=== PATIENT | female | born 1965 | race Caucasian/White ===

== ENCOUNTER 2019-05-13 15:09 | Emergency (ER) | payer OTHER ==
[~2019-05-13] VITALS: Ht 170.2 cm; Wt 60.5 kg
--- NOTE | 2019-05-13 15:16 | NUR ---
MACEY 79 FROM HOME C/O SUICIDAL IDEATION NO PLAN +ETOH, PT AWAKE, PT IN BED, AAOX4, -SOB, NAD NOTED, PENDING MD CORTEZ
[2019-05-13] MEDS ORDERED: ALPR0.255 PO (15:17)
[2019-05-13] MEDS ORDERED: ESCI10TA PO (15:17)
[2019-05-13] MEDS ORDERED: IBUP-1957 PO (15:17)
[2019-05-13 16:04] LABS: BASOPHILS # (AUTO) 0.1 /CMM (0.0-0.2); BASOPHILS % (AUTO) 2.1 % (0.0-2.0); EOSINOPHILS % (AUTO) 1.6 % (0.0-6.0); HEMATOCRIT 41 % (33-45); HEMOGLOBIN 13.7 g/dL (11.5-14.8); LYMPHOCYTES % (AUTO) 34.4 % (20.0-44.0); MEAN CORPUSCULAR HGB CONC 34 g/dl (31.0-36.0); MEAN CORPUSCULAR VOLUME 102 fL (82-100); MONOCYTES # (AUTO) 0.5 /CMM (0.1-1.30); MONOCYTES % (AUTO) 7.9 % (2.0-12.0); NEUTROPHILS # (AUTO) 3.1 /CMM (1.8-8.9); PLATELET COUNT (AUTO) 120 /CMM (150-450); RED BLOOD CELL COUNT(AUTO) 3.98 MIL/uL (4.0-5.2); WHITE BLOOD COUNT (AUTO) 5.8 K/uL (4.3-11.0)
[2019-05-13 16:11] LABS: CALCIUM, SERUM 8.6 mg/dL (8.5-10.1); CARBON DIOXIDE 24 mmol/L (21-32); CHLORIDE 101 mmol/L (98-107); CREATININE 0.8 mg/dL (0.6-1.3); GLUCOSE 88 mg/dL (74-106); POTASSIUM 4.2 mmol/L (3.5-5.1); SODIUM SERUM 139 mmol/L (136-145); UREA NITROGEN, BLOOD 12 mg/dL (7-18)
[2019-05-13 16:24] LABS: ACETAMINOPHEN < 10 ug/ml (10-30); ALANINE AMINOTRANSFERASE 74 U/L (12-78); ALBUMIN 3.7 g/dL (3.4-5.0); ALCOHOL, BLOOD 322 mg/dL (0-0); ALKALINE PHOSPHATASE 75 U/L (46-116); ASPARTATE AMINOTRANSFERASE 85 U/L (15-37); BILIRUBIN,DIRECT 0.1 mg/dL (0.0-0.2); BILIRUBIN,TOTAL 0.2 mg/dL (0.2-1.0); SALICYLATE 8.7 mg/dL (2.8-20.0); TOTAL PROTEIN, SERUM 7.3 g/dL (6.4-8.2)
--- NOTE | 2019-05-13 17:24 | NUR ---
URINE COLLECTED AND SENT TO LAB
[2019-05-13 17:44] LABS: BILIRUBIN,URINE Negative (NEGATIVE); BLOOD, URINE Negative Ery/uL (NEGATIVE); COLOR,URINE Yellow (YELLOW); KETONES,URINE Negative (NEGATIVE); LEUKOCYTE ESTERASE ,URINE Negative (NEGATIVE); NITRITE, URINE Negative (NEGATIVE); PROTEIN,URINE Negative (NEGATIVE); UGLUCOSE Negative (NEGATIVE); UROBILINOGEN,URINE 0.2 EU/dL (0.2)
[2019-05-13 17:45] LABS: APPEARANCE,URINE CLEAR (CLEAR)
[2019-05-13] MEDS ORDERED: IBUPROFEN 600 MG TABLET PO ONE ×2 (18:30→18:59)
--- NOTE | 2019-05-13 20:12 | NUR ---
Patient discharged to home in stable condition. Written and verbal after care instructions given. Patient verbalizes understanding of instruction.
[2019-05-13 20:13] VITALS: BP 124/75
== END 2019-05-13 20:15 | disposition home or self-care (01) ==
LOC: ER 15:11
DX: R45.851 Suicidal ideations (principal); F10.129 Alcohol abuse with intoxication, unspecified; F32.9 Major depressive disorder, single episode, unspecified; F13.10 Sedative, hypnotic or anxiolytic abuse, uncomplicated; Y90.7 Blood alcohol level of 200-239 mg/100 ml; Z60.2 Problems related to living alone; Z79.899 Other long term (current) drug therapy
CPT/HCPCS: 36415; 80048; 80076; 80305; 80307 ×2; 80329; 81001; 84703; 85025; 99284; G0480; 81000-TC

== ENCOUNTER 2019-06-22 14:20 | Emergency (ER) | payer OTHER ==
[~2019-06-22] VITALS: Ht 165.1 cm; Wt 68.0 kg
[~2019-06-22 14:20] MED LIST: ALPR0.255 PO; ESCI10TA PO; IBUP-1957 PO
--- NOTE | 2019-06-22 14:24 | NUR ---
KRIS guajardo s/p etoh use and possible overdose on melatonin, to er bed 10, hooked to monitor, changed to hosp gown, warm blanket provided, awaiting md chamberlain
--- NOTE | 2019-06-22 14:26 | NUR ---
HALDOL 5MG AND ATIVAN 2 MG ADMINISTERED IM TO L DELTOID
--- NOTE | 2019-06-22 14:26 | NUR ---
PATIENT BROUGHT IN WITH DAVID SERRANO OFFICER YARELIS AND OFFICER CYDNEY. PER REPORT, PATIENT WAS SEEN IN HER HOUSE, ETOH AND EMPTY BOTTLE OF XANAX. PER DAVID, PT STATED "I WANT TO , i'M TIRED OF LIFE, I DON'T WANT TO BE IN THIS [place] ANYMORE". PER DAVID REPORT, PATIENT WAS FOUND EXTREMELY INTOXICATED AND FOUND COUPLE OF PRESCRIPTION MEDICATION.
--- NOTE | 2019-06-22 14:27 | NUR ---
1:1 SITTER AT BEDSIDE
--- NOTE | 2019-06-22 14:30 | NUR ---
dr ruvalcaba at bedside
[2019-06-22 14:51] LABS: BASOPHILS # (AUTO) 0.1 /CMM (0.0-0.2); BASOPHILS % (AUTO) 1.2 % (0.0-2.0); EOSINOPHILS % (AUTO) 1.2 % (0.0-6.0); HEMATOCRIT 42 % (33-45); HEMOGLOBIN 14.2 g/dL (11.5-14.8); LYMPHOCYTES # (AUTO) 3.8 /CMM (0.8-4.8); LYMPHOCYTES % (AUTO) 51.7 % (20.0-44.0); MEAN CORPUSCULAR HGB CONC 34 g/dl (31.0-36.0); MEAN CORPUSCULAR VOLUME 104 fL (82-100); MONOCYTES # (AUTO) 0.4 /CMM (0.1-1.30); MONOCYTES % (AUTO) 5.4 % (2.0-12.0); NEUTROPHILS % (AUTO) 40.5 % (43.0-81.0); PLATELET COUNT (AUTO) 168 /CMM (150-450); RED BLOOD CELL COUNT(AUTO) 4.05 MIL/uL (4.0-5.2); WHITE BLOOD COUNT (AUTO) 7.3 K/uL (4.3-11.0)
[2019-06-22 14:58] LABS: CALCIUM, SERUM 8.5 mg/dL (8.5-10.1); CARBON DIOXIDE 30 mmol/L (21-32); CHLORIDE 105 mmol/L (98-107); CREATININE 0.7 mg/dL (0.6-1.3); GLUCOSE 87 mg/dL (74-106); SODIUM SERUM 144 mmol/L (136-145); UREA NITROGEN, BLOOD 8 mg/dL (7-18)
[2019-06-22 15:10] LABS: ALANINE AMINOTRANSFERASE 83 U/L (12-78); ALBUMIN 3.5 g/dL (3.4-5.0); ALCOHOL, BLOOD 437 mg/dL (0-0); ALKALINE PHOSPHATASE 76 U/L (46-116); ASPARTATE AMINOTRANSFERASE 90 U/L (15-37); BILIRUBIN,TOTAL 0.1 mg/dL (0.2-1.0); SALICYLATE 8.2 mg/dL (2.8-20.0); TOTAL PROTEIN, SERUM 7.4 g/dL (6.4-8.2)
[2019-06-22 15:12] LABS: ACETAMINOPHEN < 2 ug/ml (10-30)
[2019-06-22 15:24] LABS: APPEARANCE,URINE Clear (CLEAR); BILIRUBIN,URINE Negative (NEGATIVE); BLOOD, URINE Negative Ery/uL (NEGATIVE); COLOR,URINE Yellow (YELLOW); KETONES,URINE Negative (NEGATIVE); LEUKOCYTE ESTERASE ,URINE Negative (NEGATIVE); NITRITE, URINE Negative (NEGATIVE); PH,URINE 5.5 (5.0-8.0); PROTEIN,URINE Negative (NEGATIVE); UGLUCOSE Negative (NEGATIVE); UROBILINOGEN,URINE 0.2 EU/dL (0.2)
--- NOTE | 2019-06-22 15:29 | NUR ---
MIRA PINON AT BEDSIDE
--- NOTE | 2019-06-22 15:29 | NUR ---
HOLD MADE BY OFFICER CYDNEY
--- NOTE | 2019-06-22 15:45 | NUR ---
Social service consult requested by Dr. Cisneros for alcohol intoxication and 5150 Hold by DAVID. Per MD Notes, pt is a 54-year-old female with a history of depression on Xanax and Lexapro, brought in by ambulance from home for evaluation of suicidal ideation and acute alcohol intoxication. GOLF CART REPAIRER met with the pt. bedside in ED. GOLF CART REPAIRER introduced self and explained her role. Pt. is alert and oriented x 3. Pt appears to be intoxicated but is able to provide information. Pt states she resides alone in an apt in [place]. Pt. reports to have had 4 glasses of mimosa this AM at a friend's birthday sherine and later this afternoon had 4 glasses of vodka soda. 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 Pt. stated, that she has been drinking a lot more lately due to her younger sister is dying from Ovarian Cancer. Pt. denies suicidal ideations, however [facility] (#[id number]) and Officer Eveline (#[id number]) showed GOLF CART REPAIRER photos of texts that pt. sent to her sister earlier today expressing suicidal thoughts. The patient reports that she mentioned to family earlier today that "she would rather be than alive", after which family became concerned and called 911. Pt states she has Depression and Anxiety and takes Lexapro and Xanax. Per DAVID, her Xanax prescription bottle was empty and was refilled in April. When GOLF CART REPAIRER asked pt about the Xanax, pt stated she gave it to her sister. [facility] officer Gen informed GOLF CART REPAIRER that pt. is not telling the truth. Pt. has been placed on a 5150 hold by DAVID. Pt to be evaluated by bike designer once pt. is sober and medically cleared.
[2019-06-22] MEDS ORDERED: HALOPERIDOL LACTATE INJ 5 MG/ML VIAL ONE (16:23)
[2019-06-22] MEDS ORDERED: LORAZEPAM INJ 2 MG/ML VIAL ONE (16:24)
--- NOTE | 2019-06-22 17:28 | NUR ---
PATIENT IN BED AWAKE, HOOKED TO MONITOR, SITTER AT BEDSIDE. WILL CONTINUE TO MONITOR ACCORDINGLY.
--- NOTE | 2019-06-22 19:05 | NUR ---
NEW SITTER AT BEDSIDE
--- NOTE | 2019-06-22 19:33 | NUR ---
REPORT GIVEN TO JOAQUIN SANCHEZ FOR VANESSA
--- NOTE | 2019-06-22 20:58 | NUR ---
CARROLL JACKSON (SISTER) CONTACT INFORMATION: [phone]
--- NOTE | 2019-06-22 21:58 | NUR ---
Patient is resting comfortably in bed with eyes closed. Easily aroused. VSS
--- NOTE | 2019-06-23 02:28 | NUR ---
Patient is resting comfortably in bed with eyes closed. Easily aroused. VSS
--- NOTE | 2019-06-23 02:28 | NUR ---
SITTER AT BEDSIDE FOR SAFETY
--- NOTE | 2019-06-23 02:30 | NUR ---
CALLED ART AIRFIELD ENGINEER OFFICER FOR EVAL
--- NOTE | 2019-06-23 02:45 | NUR ---
ART AT BEDSIDE FOR EVAL
--- NOTE | 2019-06-23 03:15 | NUR ---
Patient discharged to home in stable condition. Written and verbal after care instructions given. Patient verbalizes understanding of instruction.Denies HI/SI. Ambulated patient. Walked w/ steady gait.
[2019-06-23 03:17] VITALS: BP 117/89
== END 2019-06-23 03:17 | disposition home or self-care (01) ==
LOC: ER 14:21
DX: S51.001A Unspecified open wound of right elbow, initial encounter (principal); F10.129 Alcohol abuse with intoxication, unspecified; F32.9 Major depressive disorder, single episode, unspecified; Y90.5 Blood alcohol level of 100-119 mg/100 ml; Z60.2 Problems related to living alone; Z79.899 Other long term (current) drug therapy; W18.30XA Fall on same level, unspecified, initial encounter; Y93.89 Activity, other specified; Y92.89 Other specified places as the place of occurrence of the external cause; Y99.8 Other external cause status
CPT/HCPCS: 36415 ×2; 80048; 80076; 80305; 80307 ×2; 80329; 81001; 85025; 99283; G0480; 81000-TC; J1630; J2060

== ENCOUNTER 2020-07-28 17:52 | Emergency (ER) | payer OTHER ==
[~2020-07-28] VITALS: Ht 170.2 cm; Wt 59.0 kg
--- NOTE | 2020-07-28 17:52 | NUR ---
PT BIBRA 89 FROM HOME C/O R KNEE PAIN. DENIES INJURY. PT IS AAOX4, NOT IN RESPIRATORY DISTRESS, V/S STABLE, KEPT RESTED AND COMFORTABLE. WILL CONTINUE TO MONITOR.
--- NOTE | 2020-07-28 18:16 | NUR ---
SEEN AND EXAMINED BY JUSTUS DARDEN
[2020-07-28] MEDS ORDERED: ACETAMINOPHEN 325 MG TABLET PO ONE (18:30)
[2020-07-28] MEDS ORDERED: LORAZEPAM 0.5 MG TABLET PO ONE (18:30)
[2020-07-28] MEDS ORDERED: TDAP [DIPH/PERTUSSIS/TET] 0.5 ML VIAL IM ONE ×2 (18:30→18:37)
[2020-07-28] MEDS ORDERED: LORAZEPAM 0.5 MG TABLET ONE (18:36)
[2020-07-28] MEDS ORDERED: ACETAMINOPHEN 325 MG TABLET ONE (18:37)
--- NOTE | 2020-07-28 18:45 | NUR ---
PT IS BACK FROM THE CT SCAN.
[2020-07-28] MEDS ORDERED: HYDR-500 PO (19:17)
--- NOTE | 2020-07-28 19:34 | NUR ---
PT IS MEDICAALY STABLE FOR D/C. WOUND CARE PROVIDED AND PT WAS PROVIDED WITH LLE BRASE. PT REFUSED CRUTCHES. RISK VS BENEFITS WERE EXPLAINED TO THE PT, PT WAS INSTRUCTED TO AVOID PUTTING WEIGHT IN HIS LLE. Patient discharged to home in stable condition. rx and Written and verbal after care instructions given. Patient verbalizes understanding of instruction.
[2020-07-28 19:37] VITALS: BP 131/88
== END 2020-07-28 19:44 | disposition home or self-care (01) ==
LOC: ER 17:58
DX: S83.8X2A Sprain of other specified parts of left knee, initial encounter (principal); S40.022A Contusion of left upper arm, initial encounter; F10.129 Alcohol abuse with intoxication, unspecified; F41.9 Anxiety disorder, unspecified; R51.9 Headache, unspecified; Y90.9 Presence of alcohol in blood, level not specified; Z60.2 Problems related to living alone; Z79.899 Other long term (current) drug therapy; X58.XXXA Exposure to other specified factors, initial encounter; Y93.89 Activity, other specified; Y92.89 Other specified places as the place of occurrence of the external cause; Y99.8 Other external cause status
CPT/HCPCS: 70450-TC; 72125-TC; 73090-TC; 73564-TC; 90715